=== PATIENT | male | born 1940 | race Hispanic/Latino ===

== ENCOUNTER 2017-08-30 05:45 | Observation (INO) | payer OTHER ==
[2017-08-25 10:00] VITALS: BP 156/69
[2017-08-25 10:28] LABS: BASOPHILS % (AUTO) 0.2 % (0.0-5.0); EOSINOPHILS % (AUTO) 2.6 % (0.0-8.0); LYMPHOCYTES % (AUTO) 26.1 % (21.0-51.0); MEAN CORPUSCULAR HEMOGLOBIN 31.2 pg (27.0-33.0); MEAN CORPUSCULAR HGB CONC 33.9 g/dL (32.0-36.0); MEAN CORPUSCULAR VOLUME 92.2 fL (79-99); MONOCYTES % (AUTO) 11.6 % (3.0-13.0); NEUTROPHILS % (AUTO) 59.5 % (40.0-77.0); PLATELET COUNT (AUTO) 173 K/uL (130-400); RED BLOOD CELL COUNT(AUTO) 4.56 MIL/uL (4.50-6.20); RED CELL DISTRIBUTION WIDTH 13.2 % (11.0-15.5); WHITE BLOOD COUNT (AUTO) 6.6 K/uL (4.8-10.8)
[2017-08-25] MEDS: CEFAZOLIN SODIUM 1 GM VIAL IVP SCH (10:30)
[2017-08-25 10:32] LABS: POTASSIUM 4.2 mmol/L (3.5-5.1)
[~2017-08-30] VITALS: Ht 165.1 cm; Wt 98.0 kg
[2017-08-30] VITALS (24 sets, daily range): BP systolic 87–166; BP diastolic 35–96
[~2017-08-30 05:45] MED LIST: ATOR20TA PO; LISI40TA4 PO
[2017-08-30] MEDS ORDERED: BUPIVACAINE/EPI/PF 0.25% 30ML VIAL IJ ONE (06:40)
[2017-08-30] MEDS ORDERED: DURAMORPH PF1 MG/ML 10ML AMP IV ONE (06:40)
[2017-08-30] MEDS ORDERED: BACITRACIN 50,000 UNIT VIAL ONE (06:41)
[2017-08-30] MEDS ORDERED: THROMBIN-JMI 20000 UNIT KIT TP ONE (06:41)
[2017-08-30] MEDS ORDERED: CEFAZOLIN SODIUM 1 GM VIAL ONE (07:59)
[2017-08-30] MEDS ORDERED: LACTATED RINGERS 1000ML 1,000 ML IV ONE (07:59)
[2017-08-30] MEDS ORDERED: WATER FOR INJECTION,STERILE 20 ML VIAL ONE (08:00)
[2017-08-30] MEDS ORDERED: FENTANYL CITRATE PF 50 MCG/1 ML 5ML AMP IV ONE (08:36)
[2017-08-30] MEDS ORDERED: MIDAZOLAM HCL 1 MG/ML 2ML VIAL ONE (08:36)
[2017-08-30] MEDS: CEFAZOLIN SODIUM 1 GM VIAL IVP SCH (09:05)
[2017-08-30] MEDS ORDERED: HYDR12.54 PO (10:14)
[2017-08-30] MEDS ORDERED: MORPHINE SULFATE 2 MG/ML 1ML SYG IVP PRN (11:45)
[2017-08-30] MEDS ORDERED: CEFAZOLIN 2GM / 50 ML 50 ML IV SCH (11:45)
[2017-08-30] MEDS ORDERED: SODIUM CHLORIDE 0.9% 10 ML VIAL IVP PRN (11:45)
[2017-08-30] MEDS ORDERED: HYDROCODONE/ACETAMINOPHEN 5/325 MG TAB PO PRN (11:45)
[2017-08-30] MEDS ORDERED: PROMETHAZINE HCL 25 MG/ML 1ML AMPULE IM PRN (11:45)
[2017-08-30] MEDS ORDERED: CEFAZOLIN SODIUM 1 GM VIAL IVP SCH (12:00)
[2017-08-30] MEDS: DEXAMETHASONE SOD PHOSPHATE 4 MG/ML 1ML VIAL IVP SCH ×3 (13:03→23:16)
[2017-08-30] MEDS: LACTATED RINGERS 1000ML 1,000 ML IV SCH (13:03)
[2017-08-30] MEDS ORDERED: MECL-129 PO (16:08)
[2017-08-30] MEDS ORDERED: MECLIZINE HCL 25 MG TABLET PO PRN (20:00)
[2017-08-30] MEDS ORDERED: ATORVASTATIN CALCIUM 20 MG TABLET PO SCH (21:00)
[2017-08-30] MEDS ORDERED: BENZOCAINE/MENTH/CETYLPYRD CL 1 EACH LOZENGE MM PRN (21:30)
[2017-08-31] MEDS: LACTATED RINGERS 1000ML 1,000 ML IV SCH (00:59)
[2017-08-31 04:49] VITALS: BP_SYST 117; BP_SYST 119; BP_DIAS 50; BP_DIAS 56
[2017-08-31] MEDS: DEXAMETHASONE SOD PHOSPHATE 4 MG/ML 1ML VIAL IVP SCH ×2 (05:28→11:45)
[2017-08-31 08:05] VITALS: BP 138/65
[2017-08-31] MEDS ORDERED: LISINOPRIL 40 MG TABLET PO SCH (09:00)
[2017-09-01] MEDS ORDERED: HYDROCHLOROTHIAZIDE 25 MG TABLET PO SCH (09:00)
== END 2017-08-31 12:50 | disposition home or self-care (01) ==
LOC: DAH 05:45 → DAHIP 05:46 → INTOOBSV 05:46 → 4AH 12:48
PROVIDERS: ADMIT Neurological Surgery; ATTEND Neurological Surgery
DX: M48.061 Spinal stenosis, lumbar region without neurogenic claudication (principal); M48.07 Spinal stenosis, lumbosacral region; Z79.899 Other long term (current) drug therapy
CPT/HCPCS: 36415; 63047; 63048; 72020; 80048; 85025; 96374; 96375; 96376 ×2; A4218; A4344; G0378 ×31; J0690 ×2; J1100 ×4; J2250; J2274; J3010; J3490; J7030; J7120 ×2